=== PATIENT | female | born 1985 | race Caucasian/White ===

== ENCOUNTER 2019-03-26 18:55 | Emergency (ER) | payer BC ==
[2019-03-26 20:07] LABS: ABS Eosinophils 0.1 10^3/ul (0-0.6); ABS Lymphocytes 1.3 10^3/ul (1.0-4.8); ABS Monocytes 0.7 10^3/ul (0-0.8); Eosinophil % 0.7 %; Hematocrit 38 % (35-47); Hemoglobin 13.2 g/dL (12.0-16.0); Lymphocyte % 16.3 %; Mean Corpuscular HGB Conc 35 g/dL (31-36); Mean Corpuscular Hemoglobin 28 pg (27-31); Mean Corpuscular Volume 81 fL (80-97); Mean Platelet Volume 8.4 fL (7.4-10.4); Platelet Count 309 10^3/uL (150-450); Red Blood Count 4.69 10^6 /uL (3.70-4.87); Red Cell Distribution Width 15 % (10-15); White Blood Count 8.1 10^3/uL (3.5-10.8)
[2019-03-26 20:13] LABS: INR 1.06 (0.82-1.09)
[2019-03-26] MEDS ORDERED: NS 0.9% 1000 ML** 1,000 ML IV ONE ×2 (20:15→21:35)
[2019-03-26] MEDS ORDERED: Ondansetron INJ* 2 MG/ML VIAL IV ONE (20:15)
--- NOTE | 2019-03-26 20:16 | ED ---
Abdominal Pain/Female - HPI Summary HPI Summary: 33 year old female presents to the ED with a chief complaint of N/V/D starting this morning at 3 am. She reports frequent vomiting throughout the day. Patient had pain localized at her LUQ this morning but it has resolved. She reports a headache. Denies fever, chills, or difficulty urinating. Patient does not smoke tobacco, drink alcohol, or do recreational drugs. PSHx of . Pt originally went to urgent care today but was sent to the ED because of her high heart rate. - History of Current Complaint Chief Complaint: EDNauseaVomitDiarrh Stated Complaint: NAUSEA/VOMITING/DIARRHEA PER PT Time Seen by Provider: 03/26/19 19:48 Hx Obtained From: Patient ?: No Onset/Duration: Sudden Onset, Resolved - NVD not resolved, Worse Since - 3am this morning Severity Initially: Moderate Severity Currently: Moderate Pain Intensity: 4 Pain Scale Used: 0-10 Numeric Location: Discrete At: LUQ Radiates: No Alleviating Factor(s): Vomiting, Spontaneous Resolution Associated Signs and Symptoms: Positive: Nausea, Vomiting, Diarrhea Allergies/Adverse Reactions: Allergies Allergy/AdvReac Type Severity Reaction Status Date / Time minocycline Allergy See Comment Verified 03/26/19 19:01 NSAIDS (Non-Steroidal Allergy See Comment Verified 03/26/19 19:01 Anti-Inflamma Sulfa (Sulfonamide Allergy Hives Verified 03/26/19 19:01 Antibiotics) Home Medications: Home Medications Omeprazole 20 mg PO DAILY 03/26/19 [History Confirmed 03/26/19] Zyrtec 10 mg PO DAILY 03/26/19 [History Confirmed 03/26/19] PMH/Surg Hx/FS Hx/Imm Hx Sensory History: Denies: Hx Deafness - Surgical History Surgical History: Yes Surgery Procedure, Year, and Place: C section Infectious Disease History: No Infectious Disease History: Denies: Traveled Outside the [place] in Last 30 Days - Family History Known Family History: Positive: Cardiac Disease, Hypertension, Diabetes, Other - CHF - Social History Alcohol Use: None Substance Use Type: Reports: None Hx Tobacco Use: No Smoking Status (MU): Never Smoked Tobacco Review of Systems - ROS Summary Review of Systems Summary: Home medications - Zyrtec as needed. Negative: Fever, Chills Positive: Abdominal Pain, Vomiting, Diarrhea, Nausea Negative: dysuria Positive: Headache All Other Systems Reviewed And Are Negative: Yes Physical Exam - Summary Physical Exam Summary: General: Morbidly obese female. No acute distress. HEENT: Normocephalic, Atraumatic. Eyes: Conjuctiva normal, PERRL. Ears: TMs within normal limits. Nares: (-) discharge, (-) erythema. Oropharynx: Clear, mucous membranes moist, (-) exudates. Neck: Soft, FROM, (-) lymphadenopathy, (-) thyromegaly, (-) JVD. Cardiovascular: Normal sinus rhythm, (-) murmur. Lungs: Clear to auscultation bilaterally (-) wheezes, (-) rales, (-) rhonchi. Abdomen: Soft, non-tender, non-distended, (-) organomegaly, normal bowel sounds. Back: (-) CVA tenderness Extremities: No edema. Skin: Warm, dry, (-) rash. Neuro: Alert and oriented x3, no focal deficits. Psychiatric: Mood normal, affect normal. Triage Information Reviewed: Yes Vital Signs On Initial Exam: Initial Vitals Temp Pulse Resp BP Pulse Ox 97.5 F 110 16 136/104 98 03/26/19 18:56 03/26/19 18:56 03/26/19 18:56 03/26/19 18:56 03/26/19 18:56 Vital Signs Reviewed: Yes Procedures - Sedation Patient Received Moderate/Deep Sedation with Procedure: No Diagnostics - Vital Signs Vital Signs Temp Pulse Resp BP Pulse Ox 03/26/19 18:56 97.5 F 110 16 136/104 98 - Laboratory Result Diagrams: 03/26/19 19:59 03/26/19 19:59 Lab Statement: Any lab studies that have been ordered have been reviewed, and results considered in the medical decision making process. Re-Evaluation - Re-Evaluation First Eval Re-Evaluation Time: 22:34 Change: Improved - I have discussed results with the patient and vomiting and diarrhea is under control. Discussed symptoms that warrant immediate return to ED. Abdominal Pain Fem Course/Dx - Course Course Of Treatment: 33 year old female presents with vomiting and diarrhea. symptoms improved wiht fluids, zofran and protonix. workups essentially negative although non diagnostic. discharged to home with zofran. off owrk tomorrow - Diagnoses Provider Diagnoses: Vomiting, Diarrhea Discharge ED - Sign-Out/Discharge Documenting (check all that apply): Patient Departure - discharge - Discharge Plan Condition: Stable Disposition: HOME Prescriptions: O ndansetron ODT 4MG 5TAB PRPK 4 mg PO .ED PREPAK PRN #5 steven PRN Reason: Nausea Patient Education Materials: Acute Nausea and Vomiting (ED) Forms: *Work Release Referrals: [facility] [Outside] Additional Instructions: Follow up with [facility] within 3 days. Return to the Emergency Department for new or worsening symptoms. - Billing Disposition and Condition Condition: STABLE Disposition: Home - Attestation Statements Document Initiated by Scribe: Yes Documenting Scribe: Frederic Antonio Provider For Whom Jb is Documenting (Include Credential): Sherley Irwin MD Scribe Attestation: Frederic Florentino scribed for Sherley Irwin MD on 03/26/19 at 2337. Scribe Documentation Reviewed: Yes Provider Attestation: The documentation as recorded by the Frederic trejo accurately reflects the service I personally performed and the decisions made by Sherley francisco MD Status of Scribe Document: Viewed
[2019-03-26 20:26] LABS: ALT 17 U/L (7-52); AST 12 U/L (13-39); Albumin 3.9 g/dL (3.2-5.2); Albumin/Globulin Ratio 1.2 (1-3); Alkaline Phosphatase 69 U/L (34-104); Amylase 17 U/L (29-103); Anion Gap 6 mmol/L (2-11); BUN/Creatinine Ratio 9.9 (8-20); Blood Urea Nitrogen 8 mg/dL (6-24); C Reactive Protein 49.64 mg/L (<8.01); CO2 Carbon Dioxide 28 mmol/L (22-32); Calcium 8.8 mg/dL (8.6-10.3); Chloride 103 mmol/L (101-111); EGFR African American 98.5 (>60); EGFR Non-African American 81.4 (>60); Globulin 3.3 g/dL (2-4); Glucose 101 mg/dL (70-100); Potassium 3.4 mmol/L (3.5-5.0); Sodium 137 mmol/L (135-145); Total Protein 7.2 g/dL (6.4-8.9)
[2019-03-26 20:32] LABS: HCG Pregnancy < 0.60 mIU/mL
[2019-03-26 22:00] LABS: Urine Appearance Cloudy; Urine Bilirubin Negative (Negative); Urine Blood Negative (Negative); Urine Color Amber; Urine Glucose Negative (Negative); Urine Ketones 2+ (Negative); Urine Nitrite Negative (Negative); Urine Protein 1+(30 mg/dL) (Negative); Urine Specific Gravity 1.028 (1.010-1.030); Urine Urobilinogen Negative (Negative)
[2019-03-26 22:04] LABS: Urine Bacteria 1+ (Absent); Urine Red Blood Cell Absent (Absent); Urine Squamous Epithelial Cell Present (Absent); Urine White Blood Cell 2+(11-20/hpf) (Absent)
[2019-03-26] MEDS ORDERED: Pantoprazole IV* 40 MG IV ONE (22:07)
[2019-03-26 22:56] VITALS: BP 148/76
== END 2019-03-26 22:53 | disposition home or self-care (01) ==
LOC: ED 18:55
DX: R11.10 Vomiting, unspecified (principal); R19.7 Diarrhea, unspecified; Z79.899 Other long term (current) drug therapy; Z88.1 Allergy status to other antibiotic agents; Z88.2 Allergy status to sulfonamides; Z88.8 Allergy status to other drugs, medicaments and biological substances
CPT/HCPCS: 36415; 80053; 81003; 81015; 82150; 83605; 83690; 84702; 85025; 85610; 86140; 87086; 96361; 96374; 96375; 99284; J2405